=== PATIENT | male | born 2000 | race Caucasian/White ===

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

== ENCOUNTER 2023-05-10 22:00 | Emergency (ER) | payer OTHER ==
[~2023-05-10] VITALS: Ht 185.4 cm; Wt 117.9 kg
[~2023-05-10 22:00] MED LIST changes: +BUPR150ER PO
[2023-05-10 22:11] VITALS: BP 139/93
[2023-05-11] MEDS ORDERED: OCUFLOX510 LEFTEYE (01:11)
[2023-05-11] MEDS ORDERED: ERYT.5TO LEFTEYE (01:11)
== END 2023-05-11 01:21 | disposition home or self-care (01) ==
LOC: ER 22:00
DX: T15.02XA Foreign body in cornea, left eye, initial encounter (principal); W22.8XXA Striking against or struck by other objects, initial encounter; Z79.899 Other long term (current) drug therapy
CPT/HCPCS: 65222; 99283-25; A9270

== ENCOUNTER 2025-05-06 19:06 | Emergency (ER) | payer OTHER ==
[~2025-05-06] VITALS: Ht 188 cm; Wt 120.2 kg
[~2025-05-06 19:06] MED LIST changes: +ERYT.5TO LEFTEYE; +OCUFLOX510 LEFTEYE
[2025-05-07 00:58] VITALS: BP 122/78
== END 2025-05-07 00:59 | disposition home or self-care (01) ==
LOC: ER 19:06
DX: I86.1 Scrotal varices (principal); Z79.899 Other long term (current) drug therapy
CPT/HCPCS: 76870; 99284-25